=== PATIENT | male | born 1960 ===

== ENCOUNTER 2025-10-09 13:43 | Outpatient (AMB) | payer OTHER, SELFPAY ==
[2025-10-09 13:51] VITALS: BMI 28.6
--- NOTE | 2025-10-09 13:51 | A.PHYSOV ---
Vital Signs 10/09/25 13:51 Height 5 ft 8 in Weight 188 lb BMI 28.6 Intake Visit Reasons: F/U after injection 08/18/2025 Intake Note: Patient is 65 year old male in office today for a follow up after Bilateral L5 Transforaminal Epidural Injection on 08/18/25 Allergies No Known Allergies Allergy (Verified 10/09/25 13:50) HPI Comments Details: History of Present Illness The patient is a 65 year old male presenting for a follow-up visit for chronic lower back pain and lumbar radiculitis. He reports bilateral radicular symptoms that are exacerbated by standing and relieved by sitting. A prior L5-S1 interlaminar injection provided no significant benefit. Prior to that he had multiple bilateral L4 transforaminal injections. A lumbosacral spine MRI from July 03, 2025, demonstrated diffuse degenerative changes with severe right and moderate left foraminal stenosis at the L5-S1 level. He is status post bilateral L5 transforaminal injections on August 18, 2025. Following the procedure, he experienced a significant increase in pain, which began approximately three days later and prompted consideration of an emergency room visit. The post-injection pain was treated with prednisone, which provided significant relief relief. He currently reports his pain is much better. Pain Description - Location: Lower back with bilateral radicular symptoms. - Exacerbating Factors: Pain is worse with standing. - Alleviating Factors: Pain is relieved by sitting down. - Recent Course: Experienced a significant increase in pain approximately three days after his most recent injection, which has since improved to being fine after treatment with prednisone. Results - Lumbosacral spine MRI (07/03/2025): Demonstrated diffuse degenerative changes and evidence of severe right and moderate left foraminal stenosis at the L5-S1 level. [facility] Medical History (Updated 10/09/25 @ 14:01 by Zoran Mathew DO) Spinal stenosis, lumbar region with neurogenic claudication Lumbar radiculitis Surgical History History of hernia repair Social History Alcohol intake: current Alcohol intake frequency: does not drink Patient Tobacco Use Status: Never used Tobacco Use of substances other than those prescribed or required for medical reasons: No Current occupational status: retired Review of Systems Narrative Review of Systems - Musculoskeletal: Reports chronic lower back pain. - Neurological: Reports bilateral radicular symptoms. He denies any change in bowel bladder habits. He denies any fever or chills, denies uncontrolled depression or suicidal ideation. Physical Exam Exam Exam: Physical Exam Patient appears to be in no acute distress, appropriately conversant oriented. He was able to ambulates without antalgia. Lumbar extension was restricted. Neurological examination was nonfocal. He demonstrated no upper motor neuron signs. The SI provocative maneuvers were negative. Vital Signs: BMI result Body Mass Index 28.6 Assessment & Plan Assessment & Plan (1) Lumbar radiculitis: Code(s): M54.16 - Radiculopathy, lumbar region Category: Medical (2) Spinal stenosis, lumbar region with neurogenic claudication: Code(s): M48.062 - Spinal stenosis, lumbar region with neurogenic claudication Category: Medical Plan Pain Management - Analgesia: The patient reports feeling better and that his pain is currently fine following bilateral L5 transforaminal injections and a course of prednisone. - A prior L5-S1 interlaminar injection did not provide significant benefit. - Adverse Effects: The patient experienced significantly increased pain beginning about three days after his most recent injections. - He also reported temporary leg weakness post-procedure, described as feeling like he was drunk. - Activities of Daily Living: The pain was severe enough to cause him to cry and consider an emergency room visit after the injection. Plan Patient was informed and verbally consented to the use of an ambient scribe for clinic note documentation during this visit. 1. Chronic Lower Back Pain With Lumbar Radiculitis The patient is feeling better after recent bilateral L5 transforaminal injections. The initial post-procedural pain flare was likely secondary to significant nerve inflammation, as evidenced by his MRI showing severe foraminal stenosis, and responded well to a course of prednisone. The plan is to continue with the current status and for the patient to follow up on an as-needed basis. If future injections are required, they will be performed at the hospital under sedation due to the significant pain experienced during the last in-office procedure. Discussion Notes I explained to the patient that the increased pain following his recent injection was likely because the nerves were significantly inflamed, which can sometimes cause a temporary worsening of symptoms before improvement is seen. We discussed that the prednisone helped manage this post-procedural pain flare and that the injections appear to have been successful, although they took longer to take effect. I also clarified that the temporary leg weakness he experienced was a normal and expected side effect of the anesthetic medication used during the injection. We agreed that since his pain has improved, he can follow up on an as-needed basis. I advised that should he need another injection in the future, we will perform it at the hospital with sedation to ensure his comfort, as the last procedure was very painful for him. Patient Instructions - The injection you received initially caused more pain because the nerves in your back were very inflamed, but it is now working and your pain should stay improved. - The temporary leg weakness you felt after the procedure was a normal side effect from the numbing medicine and is not a cause for concern. - Please call the office to schedule an appointment if your pain returns or worsens. - If you need another injection in the future, we will schedule it at the hospital and use sedation to make you more comfortable. Coding Level of Care Code Est Pt Level 3 (39119) Complex visit Add On G2211 Diagnoses Lumbar radiculitis M54.16 Spinal stenosis, lumbar region with neurogenic claudication M48.062
== END 2025-10-09 14:19 | disposition home or self-care (01) ==
LOC: HO.HPHYS 13:43
PROVIDERS: PCP Physician Assistant; Visit Provider Physical Medicine & Rehabilitation
DX: M54.16 Radiculopathy, lumbar region (principal); M48.062 Spinal stenosis, lumbar region with neurogenic claudication
CPT/HCPCS: 99213; G2211

== ENCOUNTER → 2025-10-09 13:43 | Outpatient (BNVA) | payer OTHER, SELFPAY | PROVIDERS: PCP Physician Assistant; Visit Provider Physical Medicine & Rehabilitation | DX: M54.16 Radiculopathy, lumbar region (principal); M48.062 Spinal stenosis, lumbar region with neurogenic claudication; G89.29 Other chronic pain; G97.82 Other postprocedural complications and disorders of nervous system | CPT/HCPCS: 99212 ==